=== PATIENT | female | born 1950 | race Caucasian/White ===

== ENCOUNTER 2023-01-13 07:48 | Day surgery (SDC) | payer MEDICARE, OTHER ==
[~2023-01-13 07:48] MED LIST: Sodium Chloride 0.9% 10 ML Syringe FLUSH PRN
[2023-01-13] MEDS ORDERED: Propofol 200 MG/20 ML SDV IV ONE (07:49)
[2023-01-13] MEDS ORDERED: Lidocaine 2% 5 ML SDV IV ONE (07:49)
[2023-01-13] MEDS ORDERED: Midazolam 1 MG/ML 2 ML SDV IV ONE (07:49)
[2023-01-13] MEDS: Lactated Ringers 1,000 ML IV SCH (08:32)
[2023-01-13 11:14] VITALS: BP 149/68; PULSE 78
== END 2023-01-13 11:06 | disposition home or self-care (01) ==
LOC: FB.SDS 07:48
PROVIDERS: ATTEND Surgery
DX: Z12.11 Encounter for screening for malignant neoplasm of colon (principal); K57.30 Diverticulosis of large intestine without perforation or abscess without bleeding; K64.4 Residual hemorrhoidal skin tags; M46.1 Sacroiliitis, not elsewhere classified; M51.16 Intervertebral disc disorders with radiculopathy, lumbar region; Z79.899 Other long term (current) drug therapy; Z79.1 Long term (current) use of non-steroidal anti-inflammatories (NSAID); Z88.2 Allergy status to sulfonamides; Z88.8 Allergy status to other drugs, medicaments and biological substances; E66.01 Morbid (severe) obesity due to excess calories; Z68.41 Body mass index [BMI] 40.0-44.9, adult
CPT/HCPCS: J2250; J2704; J7120